=== PATIENT | female | born 1955 | race Caucasian/White ===

== ENCOUNTER 2018-08-02 00:27 | Emergency (ER) | payer OTHER ==
[~2018-08-02] VITALS: Ht 165.1 cm; Wt 63.5 kg
[2018-08-02] MEDS ORDERED: Megestrol Aceta20 MG PO (00:39)
[2018-08-02] MEDS ORDERED: LEVSOD125 PO (00:39)
[2018-08-02] MEDS ORDERED: IRON150C PO (00:40)
[2018-08-02] MEDS ORDERED: PANT40 PO (00:40)
[2018-08-02] MEDS ORDERED: MONT10T PO (00:40)
[2018-08-02] MEDS ORDERED: MULVITB (00:41)
[2018-08-02] MEDS ORDERED: METAMUCIL POWD575 G1 PO (00:42)
[2018-08-02] MEDS ORDERED: POTASSIUM600 MG PO (00:43)
== END 2018-08-02 01:00 | disposition home or self-care (01) ==
LOC: ER 00:27
DX: S40.262A Insect bite (nonvenomous) of left shoulder, initial encounter (principal); W57.XXXA Bitten or stung by nonvenomous insect and other nonvenomous arthropods, initial encounter; Z88.5 Allergy status to narcotic agent; Z88.8 Allergy status to other drugs, medicaments and biological substances; Z79.899 Other long term (current) drug therapy; E03.9 Hypothyroidism, unspecified; D64.9 Anemia, unspecified; Z85.3 Personal history of malignant neoplasm of breast
CPT/HCPCS: 99282

== ENCOUNTER → 2019-04-07 | Outpatient (CLI) | payer OTHER ==
[~2019-04-07] MED LIST: IRON150C PO; LEVSOD125 PO; METAMUCIL POWD575 G1 PO; MONT10T PO; MULVITB; Megestrol Aceta20 MG PO; PANT40 PO; POTASSIUM600 MG PO
[2019-04-08 10:22] LABS: Candida species (DNA Probe) Negative (NEGATIVE); G. vaginalis (DNA Probe) Negative (NEGATIVE); T. vaginalis (DNA Probe) Negative (NEGATIVE)
== END | disposition home or self-care (01) ==
LOC: LAB SHORT 15:24 → LAB 15:24
PROVIDERS: Obstetrics & Gynecology
DX: N76.0 Acute vaginitis (principal)
CPT/HCPCS: 87480; 87510; 87660

== ENCOUNTER 2019-05-27 06:35 | Day surgery (SDC) | payer OTHER ==
[~2019-05-27] VITALS: Ht 165.1 cm; Wt 67.3 kg
[~2019-05-27 06:35] MED LIST changes: +CYCL10
[2019-05-27] MEDS ORDERED: LUTEIN1 GM (07:38)
--- NOTE | 2019-05-27 08:14 | NUR ---
05/27/19 0814 Jill Riddle 0753: DR. COFFMAN INTO ROOM TO CONSULT WITH PATIENT 0802: TIME OUT 0803: BEDSIDE INTERSCALENE BLOCK PROCEDURE START 0809: PROCEDURE COMPLETE PULSE OX ON PATIENT THROUGHOUT PROCEDURE, TWO RN TO ASSIST DR. COFFMAN, PT TOLERATED WELL, STABLE THROUGHOUT.
--- NOTE | 2019-05-27 10:26 | NUR ---
05/27/19 1026 Jere Kelley PT RESTING COMFORTABLY IN STEP DOWN. PT STATES SHE STILL FEELS VERY DROWSY. AT BEDSIDE. NO COMPLAINTS OF PAIN. FRESH WARM BLANKETS PROVIDED. VSS.
== END 2019-05-27 11:30 | disposition home or self-care (01) ==
LOC: ORSCSDS 06:35
PROVIDERS: Orthopaedic Surgery
PROC: 0LU14KZ Supplement Right Shoulder Tendon with Nonautologous Tissue Substitute, Percutaneous Endoscopic Approach (ICD-10-PCS; principal; 2019-05-27 08:00)
PROC: 0RNJ4ZZ Release Right Shoulder Joint, Percutaneous Endoscopic Approach (ICD-10-PCS; principal; 2019-05-27 08:00)
PROC: 0LQ14ZZ Repair Right Shoulder Tendon, Percutaneous Endoscopic Approach (ICD-10-PCS; principal; 2019-05-27 08:00)
DX: S46.001A Unspecified injury of muscle(s) and tendon(s) of the rotator cuff of right shoulder, initial encounter (principal); M75.51 Bursitis of right shoulder; M75.41 Impingement syndrome of right shoulder; M75.110 Incomplete rotator cuff tear or rupture of unspecified shoulder, not specified as traumatic; J44.9 Chronic obstructive pulmonary disease, unspecified; K21.9 Gastro-esophageal reflux disease without esophagitis; E03.9 Hypothyroidism, unspecified; Z79.899 Other long term (current) drug therapy
CPT/HCPCS: C1713; J0171; J0690; J1100; J2250; J2405; J2704; J2765; J2795; J7120

== ENCOUNTER → 2019-07-07 | Outpatient (CLI) | payer OTHER ==
[~2019-07-07] MED LIST changes: +LUTEIN1 GM
== END | disposition home or self-care (01) ==
LOC: LAB SHORT 11:45 → LAB 11:45
DX: N95.2 Postmenopausal atrophic vaginitis (principal)
CPT/HCPCS: 87070; 87077; 87186; 87205

== ENCOUNTER → 2019-09-21 | Outpatient (CLI) | payer MEDICARE, OTHER | END | disposition home or self-care (01) | LOC: LAB SRC 09:00 → LAB SHORT 09:00 | DX: K21.9 Gastro-esophageal reflux disease without esophagitis (principal) | CPT/HCPCS: 87338 ==

== ENCOUNTER → 2022-03-07 | Outpatient (CLI) | payer MEDICARE, OTHER ==
[~2022-03-07] MED LIST changes: +ACYC400 PO; +COLLAGEN BIOTIN PO; +CYCL10 PO; +LEVSOD100 PO; -LEVSOD125 PO; +LIOTHYRONINE PO; +LUTEIN20 MG PO; -METAMUCIL POWD575 G1 PO; +METAMUCIL POWD798 GM PO; +MIRALAX17 GM PO; +MULVITA PO; -MULVITB; +MULVITB PO; +POTASSIUM PO; +Triamcinolone A15 G3; +VALTREX500 M1 PO
[2022-03-07 15:51] LABS: Free Thyroxine 1.41 ng/dL (0.70-1.60)
[2022-03-07 15:53] LABS: Thyroid Stimulating Hormone 0.013 uIU/mL (0.360-4.800)
== END | disposition home or self-care (01) ==
LOC: LAB 14:25 → LAB SHORT 14:25
PROVIDERS: Internal Medicine Endocrinology, Diabetes & Metabolism
DX: E03.9 Hypothyroidism, unspecified (principal)
CPT/HCPCS: 36415; 84439; 84443; 84480

== ENCOUNTER 2022-03-13 08:42 | Day surgery (SDC) | payer MEDICARE, OTHER ==
[~2022-03-13] VITALS: Ht 165.1 cm; Wt 70.4 kg
--- NOTE | 2022-03-13 09:34 | NUR ---
Ambulatory in Day Surgery. History, Chart, Medications and Allergies reviewed before start of procedure. Lungs clear T/O to Auscultation. Patient States Post-Procedure ride home has been arranged WITH [facility]. DUE TO PT REPORTING CHLORHEXIDINE ALLERGY NO PRE OP WIPES OR SHOWERING DONE.
--- NOTE | 2022-03-13 18:08 | NUR ---
SHIFT SUMMARY SINCE ARRIVAL TO UNIT ABOUT 1515, PT HAS STRUGGLED w/ NAUSEA BUT NO EMESIS. MEDS GAVE SOME RELIEF; DECLINES COOL WASHCLOTH. IS NOW FEELING BETTER & TAKING IN SIPS & BITES OF CRACKERS. PAIN IS TOLERABLE IN R KNEE BUT C/O R HIP HURTING MORE. DECLINES NARCOTICS AT THIS TIME.
[2022-03-14 04:12] LABS: BASOPHILS ABSOLUTE AUTO 0.01 K/mm3 (0.00-0.23); BASOPHILS PERCENT AUTO 0 % (0-2); EOSINOPHILS ABSOLUTE AUTO 0.03 K/mm3 (0.00-0.68); EOSINOPHILS PERCENT AUTO 0 % (0-6); Hematocrit 36.2 % (33.0-51.0); Hemoglobin 11.9 g/dL (11.5-16.0); IMMATURE GRAN ABSOLUTE AUTO 0.04 K/mm3 (0.00-0.10); IMMATURE GRAN PERCENT AUTO 0 % (0-1); LYMPHOCYTES ABSOLUTE AUTO 1.15 K/mm3 (0.84-5.20); LYMPHOCYTES PERCENT AUTO 10 % (21-46); MONOCYTES ABSOLUTE AUTO 0.87 K/mm3 (0.16-1.47); MONOCYTES PERCENT AUTO 8 % (4-13); Mean Corpuscular HGB 30.2 pg (26.0-34.0); Mean Corpuscular HGB Conc 32.9 g/dL (31.5-36.5); Mean Corpuscular Volume 92 fL (80-100); Mean Platelet Volume 11.6 fL (9.1-12.4); NEUTROPHILS ABSOLUTE AUTO 9.11 K/mm3 (1.96-9.15); NEUTROPHILS PERCENT AUTO 81 % (41-73); Platelet Count 143 K/mm3 (150-400); RDW Coefficient Variation 14.1 % (11.7-14.2); RDW Standard Deviation 47.6 fL (35.1-46.3); Red Blood Cell Count 3.94 M/mm3 (3.80-5.20); White Blood Cell Count 11.21 K/mm3 (4.00-11.30)
[2022-03-14 04:28] LABS: Bun/Creatinine Ratio 18.7 (12.0-20.0); Calcium, Blood 8.5 mg/dL (8.5-10.1); Creatinine, Blood 0.64 mg/dL (0.40-1.00); Potassium, Blood 3.5 mmol/L (3.5-5.5)
--- NOTE | 2022-03-14 04:54 | NUR ---
POD1 FROM A RIGHT ELECTIVE TOTAL KNEE REPLACEMENT. VSS, BP NOTED TO BE LOW BUT PT REMAINED ASYMPTOMATIC AND STATED THAT HER BP IS USUALLY LOW IN THE AM. THE PT SLEPT WELL T/O THE NIGHT. AMBULATED TWICE TO THE BATHROOM WITH A SBA, FWW, AND GT BELT. VOIDING W/O DIFFICULTY. KARLEE WRAP ON THE RIGHT KNEE REMAINS C/D/I, POLAR PACK IN [place]. PT ONLY MEDICATED FOR PAIN WITH SCHEDUALED MEDICATIONS. PLAN IS TO DISCHARGE HOME TODAY, AWAITING FURTHER ORDERS. PT IS CURRENTLY SLEEPING, IN NO DISTRESS. CALL LIGHT IN REACH.
--- NOTE | 2022-03-14 09:40 | NUR ---
DISCHARGE SUMMARY PT A&OX4, VSS/RA, DAVID PO, VOIDING, AMB SBA W/FWW TO BRP, UP TO CHAIR FOR BREAKFAST, PAIN TREATED WITH OXY 5 MG/PT REP PAIN 08/30, SURGEON IN TO CHANGE DRESSING FIRST THING THIS AM, CHANGED AGAIN PRIOR TO DC FOR BLOOD DC ALMOST TO AQUACEL BORDER, IV DC'D.DC INSTRUCTIONS PROVIDED. PT REP UNDERSTANDING THOSE INSTRUCTIONS INCLUDING BID ASA, BID BACTRIM-START TONIGHT/SCRIPS AT HOME, DRESSING CHANGES/WHEN TO CHANGE & WHEN TO CALL THE SURGEON, RONY PATHAK AND SALVADOR URBINA USE. SHORT FREQU AMB W/REST PERIODS & ICE/ELEVATE. SENT HOME WITH DC INSTRUCTIONS AND 3 MEDIUM AND 2 SMALL AQUACEL DRESSINGS. LEFT FLOOR VIA WC TO GO HOME WITH S.O. WITH ALL PERSONAL POSSESSIONS.
== END 2022-03-14 10:00 | disposition home or self-care (01) ==
LOC: ORSCMMR 08:42 → ORD 10:45 → ORSCMMR 10:45 → SURS 15:15 → ORSCMMR 03-14 10:00
PROVIDERS: Orthopaedic Surgery
PROC: 0SRC0J9 Replacement of Right Knee Joint with Synthetic Substitute, Cemented, Open Approach (ICD-10-PCS; principal; 2022-03-13 10:45)
PROC: 8E0YXBZ Computer Assisted Procedure of Lower Extremity (ICD-10-PCS; principal; 2022-03-13 10:45)
DX: M17.11 Unilateral primary osteoarthritis, right knee (principal); E03.9 Hypothyroidism, unspecified; J45.909 Unspecified asthma, uncomplicated; K21.9 Gastro-esophageal reflux disease without esophagitis; R42 Dizziness and giddiness; Z79.899 Other long term (current) drug therapy
CPT/HCPCS: 36415; 73560-RT; 80048; 83735; 85025; 97110; 97116; 97162; A9270; C1713; C1776; J0171; J0690; J0735; J1100; J1885; J2250; J2370; J2405; J2550; J2704; J2795; J3010; J3370; J7120

== ENCOUNTER → 2023-02-06 | Outpatient (CLI) | payer MEDICARE, OTHER ==
[~2023-02-06] MED LIST changes: +Cyclobenzaprine5 MG PO; +LEVSOD75 PO; +LIOT5 PO; +MEGE40T PO; +VALA500 PO
[2023-02-11 10:33] LABS: Stool Occult Bld Immuno 1 Negative (NEGATIVE)
== END ==
LOC: LAB 12:00 → LAB SHORT 12:00
PROVIDERS: Family Medicine
DX: Z12.11 Encounter for screening for malignant neoplasm of colon (principal)
CPT/HCPCS: G0328

== ENCOUNTER 2024-01-30 11:43 | Day surgery (SDC) | payer MEDICARE, OTHER ==
[~2024-01-30] VITALS: Ht 162.6 cm; Wt 74.1 kg
[~2024-01-30 11:43] MED LIST changes: +Lactated Ringer's 1,000 ML IV ONE; +Ropivacaine 0.5% HCL/PF 5 MG/ML 30ML Vial ONE
[2024-01-30] MEDS ORDERED: NS 0 ML IV ONE (12:01)
[2024-01-30] MEDS ORDERED: CeFAZolin Sodium 2,000 MG VIAL ONE (12:01)
[2024-01-30] MEDS ORDERED: propofoL 20 ML IV ONE (12:20)
[2024-01-30] MEDS ORDERED: FentaNYL Citrate 50 MCG/ML 2 ML Injection ONE (12:21)
[2024-01-30] MEDS ORDERED: Ondansetron HCl 2 MG / ML 2ML Vial ONE ×2 (12:21→14:48)
[2024-01-30] MEDS ORDERED: Dexamethasone Sod Phos 10 MG/ML 1ML VIAL ONE (12:21)
[2024-01-30] MEDS ORDERED: PROBIOTIC CAP (12:32)
[2024-01-30] MEDS ORDERED: GUAI600T33 PO (12:32)
[2024-01-30] MEDS ORDERED: BIOTIN (12:33)
[2024-01-30] MEDS ORDERED: COLLAGEN (12:33)
[2024-01-30] MEDS ORDERED: MULTIVITAMIN (12:34)
[2024-01-30] MEDS ORDERED: POTASSIUM (12:35)
[2024-01-30] MEDS ORDERED: MIRALAX (12:35)
[2024-01-30] MEDS ORDERED: MAGNESIUM (12:35)
[2024-01-30] MEDS ORDERED: Lactated Ringer's 1,000 ML IV ONE (13:10)
--- NOTE | 2024-01-30 13:34 | NUR ---
01/30/24 1334 Loli Mcgrath AND DRS NOTIFIED OF CHLORHEXIDINE ALLERGY/CHLORAPREP ALLERGY
[2024-01-30] MEDS ORDERED: EPINEPhrine HCl 1 MG/ML 1ML Amp XX ONE (13:35)
[2024-01-30] MEDS ORDERED: Lidocaine HCl 2% 10 ML SDA INJ ONE (13:35)
[2024-01-30] MEDS ORDERED: Scopolamine Hydrobromide Patch ONE (13:52)
--- NOTE | 2024-01-30 13:58 | NUR ---
01/30/24 Yecenia Purvis 0.15 ML EPI MIXED WITH 30ML 0.5% ROPIVACAINE, 1:200,000
[2024-01-30 15:25] VITALS: BP 134/60
--- NOTE | 2024-01-30 15:53 | NUR ---
01/30/24 1553 Rafia Powers PT EXPRESSED NAUSEA. IV ZOFRAN GIVEN. PT STATED THAT SHE DIDN'T WANT TO GET UP OUT OF THE RECLINER. PT EDUCATION PROVIDED. THIS RN ASKED PT IF SHE'D LIKE ANYTHING ELSE FOR NAUSEA, SUCH REGLAN, BUT PT STATED THAT REGLAN DOESN'T WORK WELL WITH HER, SHE'S HAD A BAD EXPERIENCE WITH IT. PT WAS GIVEN TIME TO SIT AND RELAX, LIGHTS TURNED DOWN, DOOR TO ROOM CLOSED. 1540: PT GOT DRESSED WITH ASSISTANCE FROM HER . 1545: PT WHEELED OUT TO PERSONAL VEHICLE. PT APPEARS TO BE FEELING BETTER, SMILING AND LAUGHING. HOWEVER WHEN ASKED IF PT WAS FEELING BETTER, PT STATED SHE STILL HAS A SOUR STOMACH.
== END 2024-01-30 15:45 | disposition home or self-care (01) ==
LOC: ORSCSDS 11:43
PROVIDERS: Podiatrist Foot & Ankle Surgery
PROC: 01BG0ZZ Excision of Tibial Nerve, Open Approach (ICD-10-PCS; principal; 2024-01-30 13:15)
DX: G57.62 Lesion of plantar nerve, left lower limb (principal); K21.9 Gastro-esophageal reflux disease without esophagitis; E03.9 Hypothyroidism, unspecified; Z79.899 Other long term (current) drug therapy
CPT/HCPCS: A9270; J0171; J0690; J1100; J2001; J2405; J2704; J2795; J3010; J7120